=== PATIENT | male | born 1990 | race Caucasian/White ===

== ENCOUNTER 2022-08-30 18:21 | Emergency (ER) | payer MEDICAID ==
[~2022-08-30] VITALS: Ht 180.3 cm; Wt 91.8 kg
[~2022-08-30 18:21] MED LIST: BRINTELLIX10 MG PO; VALIUM 2MG T2 MG/TAB PO
[2022-08-30 18:43] LABS: BASO # 0.02 K/mm3 (0.02-0.10); EOS # 0.22 K/mm3 (0.04-0.40); EOS % 2.8 % (0.0-4.0); HEMATOCRIT 47.9 % (42.0-52.0); HEMOGLOBIN 16.3 g/dL (13.5-18.0); LYMPH# 2.09 K/mm3 (1.50-4.00); MEAN CELL VOLUME 92 fl (78-100); MEAN CORPUSCULAR HEMOGLOBIN 31 pg (27-31); MEAN CORPUSCULAR HGB CONC 34 g/dL (33-37); MEAN PLATELET VOLUME 11.7 fl (7.4-10.4); MONO # 1.13 K/mm3 (0.20-0.80); NEU # 4.43 K/mm3 (1.40-6.50); PLATELET COUNT 167 K/mm3 (130-400); RED BLOOD COUNT 5.22 M/mm3 (4.20-5.60); WHITE BLOOD COUNT 7.9 K/mm3 (4.8-10.8)
[2022-08-30 18:53] LABS: POTASSIUM 3.3 mmol/L (3.5-5.1)
[2022-08-30 18:55] LABS: CALCIUM 9.4 mg/dL (8.3-10.5)
[2022-08-30 18:56] LABS: TOTAL PROTEIN 7.4 g/dL (6.4-8.3)
[2022-08-30 18:58] LABS: TOTAL BILIRUBIN 0.7 mg/dL (0.2-1.2)
[2022-08-30 19:08] LABS: TROPONIN-I 0.047 ng/mL (<0.030)
[2022-08-30 19:14] LABS: D-DIMER 0.49 mg/L FEU (0.15-0.50)
[2022-08-30 22:05] VITALS: BP 100/71
== END 2022-08-30 22:05 | disposition home or self-care (01) ==
LOC: ED 18:21
PROVIDERS: Family Medicine
DX: R07.89 Other chest pain (principal); R79.89 Other specified abnormal findings of blood chemistry; F17.210 Nicotine dependence, cigarettes, uncomplicated; Z28.311 Partially vaccinated for COVID-19
CPT/HCPCS: J2060